=== PATIENT | female | born 1985 | race Caucasian/White ===

== ENCOUNTER 2016-07-05 19:39 | Emergency (ER) | payer BC ==
[~2016-07-05] VITALS: Ht 167.6 cm; Wt 68.4 kg
[2016-07-05 19:43] VITALS: TEMP 36.9; Ht 167.6 cm; Wt 68.4 kg
[2016-07-05] MEDS ORDERED: IBUP-1050 PO (20:06)
[2016-07-05] MEDS ORDERED: CYAN100T PO (20:06)
[2016-07-05] MEDS ORDERED: MULT-513 PO (20:06)
[2016-07-05] MEDS ORDERED: XYLOCAINE 1%/SOD BICARB 20 ML VIAL INFIL ONE (20:15)
[2016-07-05 21:27] VITALS: BP 102/71; PULSE 70; O2SAT 99
--- NOTE | 2016-07-08 17:10 | EMERGENCY ROOM VISIT NOTE ---
ED Visit Note First contact with patient: 19:54 Chief Complaint: Left thumb laceration. History of Present Illness: Ms. Syed is a 31-year-old white female who ambulates into the ED complaining of left thumb laceration. Patient reports approximately 30 minutes before she arrived in the emergency department she was using a knife at home and accidentally cut her left thumb. She reports she control bleeding but did not wash the wound. Associated with her wound she reports she has a deep stinging sensation. She rates this discomfort 5/10. Her pain worsens with palpation. She has not identified any alleviating factors related to the pain. She has not taken any medications for pain prior to arrival at the hospital. She denies any associated symptoms including other hand pain, other finger pain, thumb weakness /numbness/tingling Review of Systems: As noted above in history of present illness. Past Medical History: Status post tonsillectomy. Current Medications: Vitamins, ibuprofen. Allergies to Medications: Patient denies. Social History: Patient is currently employed; she feels safe in her home environment; she denies tobacco use and admits to alcohol use. Tetanus Immunization Status: Patient reports up-to-date. Physical Examination: Vital Signs: Date Time Temp Pulse Resp B/P Pulse Ox O2 Delivery O2 Flow Rate FiO2 07/05/16 21:27 70 16 102/71 99 07/05/16 19:43 36.9 102 20 117/72 98 GENERAL: 31-year-old female in mild distress due to pain, nontoxic-appearing, afebrile and hemodynamically stable. NEUROLOGICAL: Awake, alert and oriented to person, place and time. Answering questions appropriately and following commands. SKIN: Warm, dry and pink. Left Thumb: Over the anterior aspect of her left patient has a wheezy C-shaped full-thickness laceration measuring approximately 1.9 cm. No active bleeding LEFT THUMB: Soft tissue injury as noted above. No gross bony deformity. Full range of motion in all movements of the MCP and interphalangeal joint. Throughout the finger the skin was warm and pink and capillary refill is brisk. She is able to distinguish light sensations through all dermatomes. ED Course: Patient is assessed as noted above. Wound Repair: Complexity: Basic Verbal consent was obtained after the risks and benefits were explained. The skin was prepped with betadine and a sterile field set. Wound edges of the wound was anesthetized with 1.9 ml buffered 1% lidocaine. The wound was explored for foreign bodies and none found. Copious irrigation was performed using sterile saline. With direct pressure the bleeding subsided. Debridement was not performed. The wound edges were approximated using 5-0 Ethilon with 4 simple interrupted sutures. Hemostasis and excellent approximation was achieved. Antibacterial ointment and a sterile dressing applied. No complications and the patient tolerated the procedure well. Patient was educated about tonight's findings and instructed on her treatment plan; she verbalizes understanding and agreement with this plan. Clinical Impression: Laceration of the left thumb. Disposition: Patient discharged home in stable condition. Plan: Comfort measures, wound care and signs of infection were discussed with the patient. Patient was encouraged to follow-up with PCP or return to the ED for signs of infection and/or suture 10-12 days.
== END 2016-07-05 21:28 | disposition home or self-care (01) ==
LOC: C.EDB 19:41 → C.EDD 21:28
DX: S61.012A Laceration without foreign body of left thumb without damage to nail, initial encounter (principal); W26.0XXA Contact with knife, initial encounter

== ENCOUNTER 2016-07-16 14:00 | Emergency (ER) | payer BC ==
[~2016-07-16] VITALS: Ht 167.6 cm; Wt 68.8 kg
[~2016-07-16 14:00] MED LIST: CYAN100T PO; IBUP-1050 PO; MULT-513 PO
[2016-07-16 14:05] VITALS: BP 104/67; PULSE 82; TEMP 36.6; O2SAT 99; Ht 167.6 cm; Wt 68.8 kg
--- NOTE | 2016-07-16 14:21 | EMERGENCY ROOM VISIT NOTE ---
History First contact with patient: 14:09 Chief Complaint: SUTURE/STAPLE REMOVAL Stated Complaint: REMOVAL OF STITCHES Nursing Triage Summary: pt has 4 sutures need removed placed 2 sunday ago placed here History of Present Illness The patient is a 31 year old female who presents to the Emergency Room for suture removal from a finger laceration that was repaired in our facility approximately 11 days ago. She denies any wound complications. Review of Systems Noncontributory Past Medical/Surgical History Well documented on previous visit Social History Smoking Status: Never Smoker Marital Status: single Occupation Status: employed Current/Historical Medications Scheduled Cyanocobalamin (Vitamin B-12), 1 TAB PO DAILY Ibuprofen (Advil), 400 MG PO PRN UD Multivitamins/Minerals (Mvi With Minerals), 1 TAB PO DAILY Allergies Coded Allergies: No Known Allergies (Unverified , 07/30/15) Physical Exam Vital Signs Date Time Temp Pulse Resp B/P Pulse Ox O2 Delivery O2 Flow Rate FiO2 07/16/16 14:05 36.6 82 18 104/67 99 Nasal Cannula Physical Exam MUSCULOSKELETAL: Examination of the thumb shows a well-healed digital pad laceration without erythema, fluctuance or diastases. All sutures were removed without any complications. Medical Decision & Procedures ED Course The patient was provided additional verbal wound care instructions. Follow-up with family doctor as needed. Medical Decision Impression Primary Impression: Encounter for removal of sutures Additional Impression: Thumb laceration Departure Information Referrals RV. Erwin MD (PCP) Patient Instructions My [facility] Problem Qualifiers Additional Impression: Thumb laceration Encounter type: subsequent encounter
== END 2016-07-16 14:21 | disposition home or self-care (01) ==
LOC: C.EDB 14:01 → C.EDD 14:21
DX: S61.012A Laceration without foreign body of left thumb without damage to nail, initial encounter (principal); W26.0XXA Contact with knife, initial encounter